=== PATIENT | female | born 1980 | race African-American/Black ===

== ENCOUNTER 2016-09-16 15:03 | Emergency (ER) | payer MEDICAID ==
[~2016-09-16] VITALS: Ht 165.1 cm; Wt 73.0 kg
[2016-09-16] MEDS ORDERED: KETOROLAC 60MG/2ML VIAL IM ONE (16:00)
[2016-09-16 16:19] LABS: BASOPHILS % 0.8 % (0.0-2.0); EOSINOPHILS % 2.1 % (0.0-5.0); HEMATOCRIT. 34.1 % (36.0-48.0); LYMPHOCYTES % 30.3 % (20.0-50.0); MEAN CORPUSCULAR HEMOGLOBIN 26.3 pg (28.0-32.0); MEAN CORPUSCULAR HGB CONC 32.3 g/dL (31.0-37.0); MEAN CORPUSCULAR VOLUME 81.4 fL (81.0-99.0); MEAN PLATELET VOLUME 8.8 fl (7.4-10.4); MONOCYTES % 7.3 % (2.0-8.0); NEUTROPHILS % 59.5 % (40.0-76.0); PLATELET 192 x1000/uL (130-400); RED BLOOD CELL COUNT 4.19 mill/uL (4.2-5.4); WHITE BLOOD COUNT 6.1 x1000/uL (4.5-11.0)
[2016-09-16 16:25] LABS: CHLORIDE 107 mEq/L (98-107); INDEX HEMOLYSI 1 (1-3); INDEX ICTERIC 1 (1-4); INDEX LIPEMIC 1 (1-3)
[2016-09-16 16:35] LABS: ALANINE AMINOTRANSFERASE 19 IU/L (13-61); ALBUMIN 3.3 g/dL (3.4-5.0); ANION GAP 9; CALCIUM 8.8 mg/dL (8.5-10.1); CARBON DIOXIDE 29 mEq/L (21-32); LIPASE 114 IU/L (73-393); UREA NITROGEN BLOOD 9 mg/dL (7-21); eGFR > 60 mL/min (>60)
[2016-09-16 16:43] LABS: CLARITY URINE CLEAR (CLEAR); COLOR URINE YELLOW (YELLOW); GLUCOSE URINE NEGATIVE (NEGATIVE); KETONES URINE NEGATIVE (NEGATIVE); LEUKOCYTE ESTERASE URINE NEGATIVE (NEGATIVE); NITRITE URINE NEGATIVE (NEGATIVE); OCCULT BLOOD URINE NEGATIVE (NEGATIVE); PH URINE 6.5 (4.5-8.0); PROTEIN URINE NEGATIVE (NEGATIVE); SPECIFIC GRAVITY URINE 1.023 (1.005-1.030)
[2016-09-16 17:02] LABS: *AMPHETAMINES SCREEN URINE NEGATIVE (NEGATIVE); *BARBITURATES SCREEN URINE NEGATIVE (NEGATIVE); *BENZODIAZEPINES SCREEN URINE NEGATIVE (NEGATIVE); *COCAINE SCREEN URINE NEGATIVE (NEGATIVE); ECSTASY MDMA SCREEN URINE NEGATIVE (NEGATIVE); METHADONE URINE SCREEN NEGATIVE (NEGATIVE); OPIATES URINE SCREEN NEGATIVE (NEGATIVE); PHENCYCLIDINE URINE SCREEN NEGATIVE (NEGATIVE)
[2016-09-16 17:05] LABS: CANNABINOID URINE SCREEN PRESUMTIVE POSITIVE (NEGATIVE)
[2016-09-16] MEDS ORDERED: IBUPROFEN 600MG TABLET PO ONE (17:15)
[2016-09-16] MEDS ORDERED: MORPHINE SULFATE 10 MG/ML CPJ IM ONE (17:45)
[2016-09-16 20:55] VITALS: BP 129/74
== END 2016-09-16 22:15 | disposition home or self-care (01) ==
LOC: ER 15:04
DX: R10.31 Right lower quadrant pain (principal); F12.10 Cannabis abuse, uncomplicated; Z98.890 Other specified postprocedural states; Z98.51 Tubal ligation status
CPT/HCPCS: 36415; 74176; 76705; 76856; 80053; 80305; 81003; 81025; 83690; 85025; 96372; 99285; J1885; J2270; Z7610

== ENCOUNTER 2017-10-21 11:02 | Emergency (ER) | payer MEDICAID ==
[~2017-10-21] VITALS: Ht 162.6 cm; Wt 80.0 kg
[2017-10-21] MEDS ORDERED: ONDANSETRON HCL 4MG/2ML VIAL IV STA (11:12)
[2017-10-21] MEDS ORDERED: SODIUM CHLORIDE 0.9% 1,000 ML IV ONE (11:12)
[2017-10-21] MEDS ORDERED: KETOROLAC 30MG/ML VIAL IV STA (11:12)
[2017-10-21 11:38] LABS: BASOPHILS % 0.5 % (0.0-2.0); EOSINOPHILS % 0.2 % (0.0-5.0); HEMATOCRIT. 36.7 % (36.0-48.0); LYMPHOCYTES % 22.3 % (20.0-50.0); MEAN CORPUSCULAR HEMOGLOBIN 26.2 pg (28.0-32.0); MEAN CORPUSCULAR VOLUME 80.3 fL (81.0-99.0); MEAN PLATELET VOLUME 8.1 fl (7.4-10.4); MONOCYTES % 3.7 % (2.0-8.0); NEUTROPHILS % 73.3 % (40.0-76.0); PLATELET 337 x1000/uL (130-400); RED BLOOD CELL COUNT 4.57 mill/uL (4.2-5.4); RED CELL DISTRIBUTION WIDTH 17.2 % (11.6-14.6)
[2017-10-21 11:41] LABS: CHLORIDE 105 mEq/L (98-107)
[2017-10-21 12:04] LABS: INR 1.1
[2017-10-21 12:57] LABS: CLARITY URINE CLOUDY (CLEAR); COLOR URINE YELLOW (YELLOW); KETONES URINE 3+ (NEGATIVE); LEUKOCYTE ESTERASE URINE 1+ (NEGATIVE); NITRITE URINE POSITIVE (NEGATIVE); OCCULT BLOOD URINE TRACE (NEGATIVE); PROTEIN URINE 1+ (NEGATIVE); SPECIFIC GRAVITY URINE 1.028 (1.005-1.030); UROBILINOGEN URINE 0.2 E.U./dL (0.2-1.0)
[2017-10-21 13:29] LABS: *AMPHETAMINES SCREEN URINE NEGATIVE (NEGATIVE); *BARBITURATES SCREEN URINE NEGATIVE (NEGATIVE); *BENZODIAZEPINES SCREEN URINE NEGATIVE (NEGATIVE); *COCAINE SCREEN URINE NEGATIVE (NEGATIVE); METHADONE URINE SCREEN NEGATIVE (NEGATIVE); OPIATES URINE SCREEN NEGATIVE (NEGATIVE); PHENCYCLIDINE URINE SCREEN NEGATIVE (NEGATIVE)
[2017-10-21 13:32] LABS: CANNABINOID URINE SCREEN PRESUMTIVE POSITIVE (NEGATIVE)
[2017-10-21] MEDS ORDERED: MORPHINE SULFATE 4 MG/ML CPJ (NOT FOR IM USE) IV ONE (13:45)
[2017-10-21] MEDS ORDERED: CEFTRIAXONE 1 G PREMIX 50 ML IV ONE (13:45)
[2017-10-21] MEDS ORDERED: MORPHINE SULFATE 2 MG/ML CPJ (NOT FOR IM USE) IV ONE (13:45)
[2017-10-21 15:03] VITALS: BP 148/89
== END 2017-10-21 15:21 | disposition home or self-care (01) ==
LOC: ER 11:23
DX: N30.00 Acute cystitis without hematuria (principal); F12.10 Cannabis abuse, uncomplicated; Z98.890 Other specified postprocedural states; Z98.51 Tubal ligation status
CPT/HCPCS: 36415; 74176; 80053; 80305; 81003; 81025; 83690; 85025; 85610; 87077; 87086; 87186; 96361; 96365; 96375; 99285; J0696; J1885; J2270; J2405; J7030; Z7610

== ENCOUNTER 2021-08-19 17:54 | Emergency (ER) | payer MEDICAID ==
[~2021-08-19] VITALS: Ht 165.1 cm; Wt 60.0 kg
[2021-08-19 17:59] VITALS: BP 145/94
[2021-08-19] MEDS ORDERED: BACITRACIN ZINC OINT UDPKT TOP ONE (18:45)
[2021-08-19] MEDS ORDERED: LIDOCAINE HCL/EPINEPHRINE 1%-EPI 1:100,000 20 ML VIAL INFIL ONE (18:45)
[2021-08-19] MEDS ORDERED: ACETAMINOPHEN 325MG TABLET PO ONE (18:45)
[2021-08-19] MEDS ORDERED: SULF1TAB48 MT (20:15)
[2021-08-19] MEDS ORDERED: CEPH500C2 MT (20:15)
[2021-08-19] MEDS ORDERED: IBUP-2028 MT (20:15)
== END 2021-08-19 21:04 | disposition home or self-care (01) ==
LOC: ER 17:54
DX: N61.1 Abscess of the breast and nipple (principal); R62.50 Unspecified lack of expected normal physiological development in childhood; Z87.11 Personal history of peptic ulcer disease; Z98.51 Tubal ligation status; Z98.890 Other specified postprocedural states
CPT/HCPCS: 10060; 99283; J3490